=== PATIENT | female | born 1990 | race Caucasian/White ===

== ENCOUNTER 2019-07-29 13:29 | Emergency (ER) | payer OTHER ==
[2019-07-29] MEDS: DIPH,PERTUSS(ACELL),TET VAC/PF 0.5 ML DISP.SYRIN IM ONE (14:00)
[2019-07-29] MEDS: Lidocaine 1% 5ml 10 MG/ML VIAL IM ONE ×4 (14:00→14:03)
[2019-07-29 14:21] VITALS: BP 125/81
[2019-07-29] MEDS: NEOMYCIN/BACITRACIN/POLYMYXINB OINT 15 GM TP ONE (14:45)
--- NOTE | 2019-07-29 14:53 | ED Physician Documentation ---
Upper Extremity Injury - HISTORIAN Historian: patient - HPI Stated Complaint: R thumb pain Chief Complaint: Upper Extremity Injury Additional Information: Patient presents to ED with right thumb pain after her artificial nail got stuck in the car seat. Patient states the nail is nearly ripped off. Onset: just prior to arrival Where: home Severity: moderate Duration: persistent since Context: other Associated Symptoms: tingling, numbness distally Modifying Factors: pain on movement - ROS CONST: no problems CVS/RESP: none NEURO: none MS/SKIN/LYMPH: none GI/: denies: nausea - PAST HX Past History: Rt handed Allergies/Adverse Reactions: Allergies Allergy/AdvReac Type Severity Reaction Status Date / Time No Known Allergies Allergy Verified 07/29/19 14:20 Home Medications: Ambulatory Orders Medication Instructions Recorded NK 07/29/19 - SOCIAL HX Smoking History: non-smoker Alcohol Use: none Drug Use: none - FAMILY HX Family History: none - VITAL SIGNS Vital Signs: Vital Signs Temp Pulse Resp BP Pulse Ox 109 H 20 125/81 99 07/29/19 13:30 07/29/19 13:30 07/29/19 13:30 07/29/19 13:30 - REVIEWED ASSESSMENTS Nursing Assessment Reviewed: Yes Vitals Reviewed: Yes Procedures Wound Location: upper extremity Wound's Depth, Shape: other (nail avulsion) Irrigated w/ Saline (ccs): 250 Betadine Prep?: Yes Anesthesia: 1% Lidocaine Volume of Anesthetic: 20 Wound Debrided: minimal Number of Sutures: 0 (Removal of thumb nail) Sling Applied?: Yes ED Results Lab/Radiology - Orders Orders: ED Orders Category Date Time Status Diph,Pertuss(Acell),Tet Vac/Pf [Adacel] Med 07/29/19 13:46 Discontinued 0.5 ml IM .ONCE ONE Lidocaine 1% 5ml [Xylocaine] Med 07/29/19 13:46 Discontinued 50 mg IM NOW ONE Lidocaine 1% 5ml [Xylocaine] Med 07/29/19 13:47 Discontinued 50 mg IM NOW ONE Lidocaine 1% 5ml [Xylocaine] Med 07/29/19 14:51 Once 50 mg IM NOW ONE Lidocaine 1% 5ml [Xylocaine] Med 07/29/19 14:51 Once 50 mg IM NOW ONE Upper Extremity Injury Physic - Physical Exam General Appearance: no acute distress, alert Hand: nail injury (right thumb), soft tissue tenderness Wrist: normal inspection Elbow/Forearm: normal inspection Shoulder: normal inspection Neuro/Vascular/Tendon: no vascular compromise, motor nml, sensation nml Skin: warm,dry Head/ENT: nml inspection Neck/Back: nml inspection Resp/CVS: chest non-tender, breath sounds nml, heart sounds nml Abdomen: non-tender, pelvis stable Discharge Clincal Impression: Nail avulsion Referrals: Primary Doctor,No [Primary Care Provider] - 2 Days Additional Instructions: 1. Wash wound twice daily with antibacterial soap. Apply triple antibiotic and cover with bandage 2. Ibuprofen 600mg every 6 hours and/or Tylenol 650mg every 4 hours as needed for pain. These may be taken together for better pain control 3. Follow up with PCP within 1 week. 4. Return to ER for new or worsening symptoms Condition: Stable Disposition: 01 HOME, SELF-CARE Decision to Admit: NO Date of Decison to Admit: 07/29/19 Decision Time: 14:56
== END 2019-07-29 15:11 | disposition home or self-care (01) ==
LOC: ED 13:29
DX: S61.101A Unspecified open wound of right thumb with damage to nail, initial encounter (principal); W45.0XXA Nail entering through skin, initial encounter
CPT/HCPCS: 11730; 90715; 99283; 99284